=== PATIENT | male | born 1990 | race Two or more races ===

== ENCOUNTER 2020-06-20 09:13 | Emergency (ER) | payer SELFPAY ==
[~2020-06-20] VITALS: Ht 182.9 cm; Wt 93.0 kg
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
[2020-06-20] MEDS ORDERED: TDAP [DIPH/PERTUSSIS/TET] 0.5 ML VIAL IM ONE (09:24)
[2020-06-20] MEDS ORDERED: HYDROCODONE/APAP 5/325MG TABLET ONE ×3 (09:24→10:33)
[2020-06-20] MEDS: HYDROCODONE/APAP 5/325MG TABLET PO ONE ×2 (09:25→10:32)
[2020-06-20] MEDS: TDAP [DIPH/PERTUSSIS/TET] 0.5 ML VIAL IM ONE (09:26)
[2020-06-20] MEDS ORDERED: HYDR-4303 PO (10:33)
[2020-06-20 11:20] VITALS: BP 131/84
--- NOTE | 2020-06-20 11:20 | NUR ---
Patient discharged to home in stable condition. Written and verbal after care instructions given. Patient verbalizes understanding of instruction. The patient left ER in stable condition.
== END 2020-06-20 11:21 | disposition home or self-care (01) ==
LOC: ER 09:15
DX: S93.492A Sprain of other ligament of left ankle, initial encounter (principal); S90.812A Abrasion, left foot, initial encounter; Z79.899 Other long term (current) drug therapy; V49.49XA Driver injured in collision with other motor vehicles in traffic accident, initial encounter; Y93.89 Activity, other specified; Y92.488 Other paved roadways as the place of occurrence of the external cause; Y99.8 Other external cause status
CPT/HCPCS: 73590-TC; 73610-TC; 73630-TC; 90715